=== PATIENT | female | born 1950 | race Caucasian/White ===

== ENCOUNTER → 2018-04-05 | Outpatient (REF) ==
[~2018-04-05] MED LIST: BACTRIM DS 8001 TAB PO; BLOOD PRESSURE MED; LORTAB 5/500 501 TAB PO; METFORMIN500 MG PO
== END ==
LOC: ZLAB.WCH 16:00
DX: Z01.89 Encounter for other specified special examinations (principal)

== ENCOUNTER → 2018-06-23 | Outpatient (REF) | LOC: ZLAB.WCH 18:12 | DX: Z01.89 Encounter for other specified special examinations (principal) ==

== ENCOUNTER → 2018-06-24 | Outpatient (REF) | LOC: ZLAB.WCH 13:16 | DX: Z01.89 Encounter for other specified special examinations (principal) ==

== ENCOUNTER 2018-12-15 21:31 | Emergency (ER) | payer MEDICARE ==
[2018-12-15 21:40] VITALS: TEMP 97.3
[2018-12-15 22:29] LABS: BASO # 0.1 (0.0-0.2); BASO % 0.8 % (0.0-2.0); EOS # 0.3 (0.0-0.7); EOS % 3.1 % (0-4.0); GRAN # 5.6 (1.4-6.5); GRAN % 59.2 % (42.2-75.2); HEMOGLOBIN 14.1 g/dl (12.5-16.0); LYMPH # 2.6 (1.2-3.4); LYMPH % 27.9 % (20.0-51.0); MEAN CELL VOLUME 89 fl (80.0-100.0); MEAN CORPUSCULAR HEMOGLOBIN 30 pg (27.0-31.0); MEAN CORPUSCULAR HGB CONC 34 g/dl (33.0-37.0); MEAN PLATELET VOLUME 10.6 fl (7.4-10.4); MONO # 0.8 (0.1-0.6); MONO % 8.4 % (1.7-9.3); PLATELET COUNT 248 K/mm3 (130-400)
[2018-12-15 22:35] LABS: PROTHROMBIN TIME 11.6 SECONDS (9.7-12.8)
[2018-12-15 22:43] LABS: ALBUMIN 2.9 gm/dL (3.5-5.0); BILIRUBIN,TOTAL 0.5 mg/dL (0.0-1.0); CREATININE, serum 1.74 (0.52-1.25); POTASSIUM 4.3 mmol/L (3.4-5.0); TOTAL PROTEIN 6.2 gm/dL (6.4-8.2)
[2018-12-15 22:54] LABS: TROPONIN-I 0.022 ng/mL (0.000-0.035)
[2018-12-15] MEDS ORDERED: TENORMIN 5050 MG/TAB PO (23:26)
[2018-12-15] MEDS ORDERED: ZANTAC 150MG T150 MG PO (23:26)
[2018-12-15] MEDS ORDERED: PRINZIDE 12.5 M1 TA1 PO (23:27)
[2018-12-15] MEDS ORDERED: OMNICEF 300MG300 MG PO (23:27)
[2018-12-15] MEDS ORDERED: SYNTHROID0.112 MG/T PO (23:27)
[2018-12-15] MEDS ORDERED: NOVLOG SQ (23:27)
[2018-12-15] MEDS ORDERED: SYNTHROID 0.10.15 MG PO (23:27)
[2018-12-15] MEDS ORDERED: SYNTHROID0.075 MG/T PO (23:27)
[2018-12-15] MEDS ORDERED: ZOLOFT 25MG25 MG PO (23:28)
[2018-12-15] MEDS ORDERED: LEVEMIR100 U/ML SQ (23:29)
[2018-12-15] MEDS ORDERED: TENORMIN 2525 MG/TAB PO (23:29)
[2018-12-16 00:07] VITALS: BP 131/79; PULSE 52
== END 2018-12-16 00:07 | disposition short-term general hospital (02) ==
LOC: COL.ER 21:31
PROVIDERS: Emergency Medicine
DX: R20.0 Anesthesia of skin (principal); R29.898 Other symptoms and signs involving the musculoskeletal system; C64.9 Malignant neoplasm of unspecified kidney, except renal pelvis; C79.31 Secondary malignant neoplasm of brain; I12.9 Hypertensive chronic kidney disease with stage 1 through stage 4 chronic kidney disease, or unspecified chronic kidney disease; E11.22 Type 2 diabetes mellitus with diabetic chronic kidney disease; N18.9 Chronic kidney disease, unspecified; Z86.73 Personal history of transient ischemic attack (TIA), and cerebral infarction without residual deficits; Z79.4 Long term (current) use of insulin
CPT/HCPCS: J1815; J7030

== ENCOUNTER → 2020-10-16 | Outpatient (REF) ==
[~2020-10-16] MED LIST changes: +LEVEMIR100 U/ML SQ; +NOVLOG SQ; +OMNICEF 300MG300 MG PO; +PRINZIDE 12.5 M1 TA1 PO; +SYNTHROID 0.10.15 MG PO; +SYNTHROID0.075 MG/T PO; +SYNTHROID0.112 MG/T PO; +TENORMIN 2525 MG/TAB PO; +TENORMIN 5050 MG/TAB PO; +ZANTAC 150MG T150 MG PO; +ZOLOFT 25MG25 MG PO
== END ==
LOC: ZLAB.WCH 10:40
DX: Z01.89 Encounter for other specified special examinations (principal)

== ENCOUNTER → 2021-08-18 | Outpatient (CLI) | payer MEDICARE ==
[~2021-08-18] VITALS: Ht 160 cm; Wt 95.0 kg
[~2021-08-18] MED LIST changes: +ASPIRIN E.C. 8181 MG PO; +CENTRUM SILVER1 TA2 PO; +DECADRON 4MG TAB4 MG PO; +IRON TABLETS325 MG PO; +LASIX 80MG TABL80 MG PO; +LIPITOR 40MG TA40 MG PO; +MAG-OX 400400 MG/TAB PO; +NORVASC 10MG10 MG PO; +SYNTHROID0.2 MG/TAB PO; +ULTRAM 50MG TAB50 MG PO
[2021-08-18 14:14] VITALS: BP 155/72; PULSE 78; TEMP 97.9
[2021-08-18 15:25] VITALS: BP 127/69; PULSE 75
== END ==
LOC: COL.RAD 11:19
DX: J90 Pleural effusion, not elsewhere classified (principal); Z85.528 Personal history of other malignant neoplasm of kidney

== ENCOUNTER → 2021-12-24 | Outpatient (CLI) | payer MEDICARE, MEDICAID | LOC: COL.VAS 12:00 | DX: N18.6 End stage renal disease (principal) ==

== ENCOUNTER 2021-12-28 21:31 | Emergency (ER) | payer MEDICARE, MEDICAID ==
[~2021-12-28] VITALS: Ht 162.6 cm; Wt 80.5 kg
[2021-12-28 21:33] VITALS: TEMP 98.3
[2021-12-28 21:56] LABS: HEMOGLOBIN 11.9 g/dl (12.5-16.0); MEAN CELL VOLUME 90 fl (80.0-100.0); MEAN CORPUSCULAR HEMOGLOBIN 29 pg (27-31); MEAN CORPUSCULAR HGB CONC 33 g/dl (33.0-37.0); PLATELET COUNT 315 K/mm3 (130-400); RED BLOOD COUNT 4.07 M/mm3 (4.10-5.30); REDCELL DISTRIBUTION WIDTH-CV 13.6 % (11.5-14.5)
[2021-12-28 21:57] LABS: HEMATOCRIT 36.5 % (37.0-47.0)
[2021-12-28 22:16] LABS: ALBUMIN 3.3 gm/dL (3.4-4.8); BILIRUBIN,TOTAL 0.4 mg/dL (0.2-1.2); CALCIUM 8.9 mg/dL (8.4-10.2); CREATININE, serum 2.7 mg/dL (0.57-1.11); POTASSIUM 3.5 mmol/L (3.5-4.5); TOTAL PROTEIN 7.4 gm/dL (6.2-8.1)
[2021-12-28 22:19] LABS: BAND 4 % (0-10); LYMPHOCYTE 4 % (20.0-51.0); PLATELET ESTIMATE NORMAL (NORMAL)
[2021-12-28 22:20] LABS: NEUTROPHILS 91 % (42.0-75.2)
[2021-12-29 00:34] VITALS: BP 167/77; PULSE 62
== END 2021-12-29 00:35 | disposition home or self-care (01) ==
LOC: COL.ER 21:31
PROVIDERS: Family Medicine
DX: K59.00 Constipation, unspecified (principal); D64.9 Anemia, unspecified; N18.9 Chronic kidney disease, unspecified; D72.829 Elevated white blood cell count, unspecified; Z99.2 Dependence on renal dialysis; Z28.311 Partially vaccinated for COVID-19

== ENCOUNTER 2022-05-12 08:21 | Outpatient (CLI) | payer MEDICARE, MEDICAID ==
[~2022-05-12] VITALS: Ht 160 cm; Wt 84.8 kg
[~2022-05-12 08:21] MED LIST changes: +B-121000 MCG PO; +CALPHRON667 MG PO; +COZAAR 50MG50 MG/TAB PO; +CYMBALTA 30MG30 MG PO; +DEMADEX100 MG PO; +NORCO 325 MG-51 TAB PO; +PRINIVIL20 MG PO; +PROTONIX 40MG T40 MG PO; +SYNTHROID0.175 MG PO; +THIAMINE 1100 MG/TAB PO; +ZOFRAN ODT4 MG PO
[2022-05-12 09:15] VITALS: BP 184/85; PULSE 66; TEMP 97.9
[2022-05-12 09:41] VITALS: BP 192/90; PULSE 72
[2022-05-12] MEDS ORDERED: TUMS500 MG PO (09:41)
[2022-05-12] MEDS ORDERED: MIRALAX PA17 GM/Dose PO (09:45)
--- NOTE | 2022-05-12 09:46 | NUR ---
SEE MERGE FOR VITAL SIGNS, ASSESSMENTS, INTERVENTIONS AND MEDICATIONS GIVEN.
[2022-05-12] MEDS ORDERED: TYLENOL 325MG325 MG PO (09:51)
[2022-05-12] MEDS ORDERED: COLACE 100100 MG/CAP PO (09:52)
[2022-05-12] MEDS ORDERED: PHOSLO667 MG PO (09:52)
[2022-05-12] MEDS ORDERED: CYMBALTA 30MG30 MG PO (09:53)
[2022-05-12] MEDS ORDERED: APRESOLINE50 MG PO (09:54)
[2022-05-12 10:24] VITALS: BP 186/99; PULSE 82
[2022-05-12 10:30] VITALS: BP 186/104; PULSE 78
--- NOTE | 2022-05-12 11:15 | NUR ---
Discharge instructions given to pt.Pt verbalizes understanding.Pt reports she will go to dialysis after this.Pt escorted out via wheelchair by this nurse.
== END 2022-05-12 12:51 ==
LOC: COL.CAR 08:21
DX: T82.898A Other specified complication of vascular prosthetic devices, implants and grafts, initial encounter (principal); E11.22 Type 2 diabetes mellitus with diabetic chronic kidney disease; N18.6 End stage renal disease; Z99.2 Dependence on renal dialysis; Z79.4 Long term (current) use of insulin
CPT/HCPCS: J0690; J2250; J3010

== ENCOUNTER 2022-10-07 07:12 | Day surgery (SDC) | payer MEDICARE, MEDICAID ==
[~2022-10-07] VITALS: Ht 160 cm; Wt 84.8 kg
[~2022-10-07 07:12] MED LIST changes: +APRESOLINE50 MG PO; +CIPRO 500MG TA500 MG PO; +COLACE 100100 MG/CAP PO; +MIRALAX PA17 GM/Dose PO; +PHOSLO667 MG PO; +TUMS500 MG PO; +TYLENOL 325MG325 MG PO
[2022-10-07 08:06] LABS: HEMOGLOBIN 11.7 g/dl (12.5-16.0); MEAN CELL VOLUME 93 fl (80.0-100.0); MEAN CORPUSCULAR HEMOGLOBIN 31 pg (27-31); MEAN CORPUSCULAR HGB CONC 34 g/dl (33.0-37.0); PLATELET COUNT 227 K/mm3 (130-400); RED BLOOD COUNT 3.73 M/mm3 (4.10-5.30); REDCELL DISTRIBUTION WIDTH-CV 12.2 % (11.5-14.5)
[2022-10-07 08:14] LABS: HEMATOCRIT 34.5 % (37.0-47.0)
[2022-10-07 08:15] VITALS: BP 127/63; PULSE 77; TEMP 98.4
[2022-10-07] MEDS ORDERED: OZEMPIC0.25 MG/0. SQ (08:25)
[2022-10-07 08:30] LABS: CALCIUM 9.1 mg/dL (8.4-10.2); CREATININE, serum 4.34 mg/dL (0.57-1.11); POTASSIUM 3.7 mmol/L (3.5-4.5)
[2022-10-07 11:18] VITALS: BP 100/56; PULSE 75; TEMP 97.3
[2022-10-07 11:33] VITALS: BP 106/61; PULSE 80
[2022-10-07 11:48] VITALS: BP 120/60; PULSE 70
[2022-10-07 12:03] VITALS: BP 139/59; PULSE 72
--- NOTE | 2022-10-07 12:15 | NUR ---
1118 RETURNS TO ROOM 1 PER CART. AWAKE, ALERT. RESP CLEAR, UNLABORED. HOB ELEVATED 40 DEGREES. VITAL SIGNS OBTAINED. INCISION LEFT UPPER ARM INTACT. NO REDNESS OR DRAINAGE OBSERVED. CALL LIGHT AT SIDE. SON IN ROOM. 1130 TOLERATES PO WATER AND JUICE WITHOUT NAUSEA. 1153 DISCHARGE INSTRUCTIONS REVIEWED. PATIENT AND SON VERBALIZE UNDERSTANDING. COPY PROVIDED IN DISCHARGE FOLDER. 1205 SITS ON EDGE BED. DRESSES WITH ASSIST, THEN STAND TRANSFERS TO WHEELCHAIR WITH ASSISTANCE
== END 2022-10-07 12:15 | disposition home or self-care (01) ==
LOC: SDCO 07:12
PROVIDERS: Nurse Anesthetist, Certified Registered; Surgery
DX: N18.6 End stage renal disease (principal); Z99.2 Dependence on renal dialysis; Z85.528 Personal history of other malignant neoplasm of kidney
CPT/HCPCS: J0690; J1644; J2370; J2704; J3010; J7120